=== PATIENT | male | born 1965 | race Caucasian/White ===

== ENCOUNTER 2018-12-26 09:05 | Emergency (ER) | payer SELFPAY ==
[2018-12-26] MEDS ORDERED: Acetaminophen 500 MG TAB ONE (09:42)
[2018-12-26] MEDS ORDERED: Ibuprofen 800 MG TAB ONE (09:42)
--- NOTE | 2018-12-26 09:53 | RAD ---
2 views chest. HISTORY: Cough for 5 days. PA and lateral views of the chest is obtained. The lungs are well aerated. No evidence of active intr athoracic disease seen. No evidence of effusions, pneumonia or pneumothorax seen IMPRESSION: Unremarkable 2 views chest.
[2018-12-26] MEDS ORDERED: Azithromycin 250 MG TAB ONE (10:14)
== END 2018-12-26 10:18 | disposition home or self-care (01) ==
LOC: ERS 09:05
DX: J20.9 Acute bronchitis, unspecified (principal)
CPT/HCPCS: 71046

== ENCOUNTER 2024-03-17 17:24 | Inpatient (IN) | payer SELFPAY ==
[~2024-03-17 17:24] MED LIST: Iopamidol-370 76% 500 ML MDV (1 ML CHARGE) ONE
[2024-03-17] MEDS ORDERED: fentaNYL 50 mcg/mL 1 mL Vial ONE (17:48)
[2024-03-17] MEDS ORDERED: Ondansetron PF 4 MG/2 ML Vial ONE ×3 (17:48→20:02)
[2024-03-17 18:02] LABS: #Basophils 0.04 10x3/uL (0.0-0.2); %Basophils 0.4 % (0.0-1.0); %Eosinophils 0.8 % (0.0-10.0); %Lymphocytes 31.3 % (21.0-51.0); %Monocytes 6.3 % (0.0-10.0); %Neutrophils 60.7 % (42.0-75.0); Hematocrit 45.1 % (42.0-52.0); Hemoglobin 16.3 g/dL (14.0-18.0); Mean Corpuscular HGB CONC 36.1 g/dL (32.0-36.0); Mean Corpuscular Hemoglobin 30.8 pg (27.0-31.0); Mean Corpuscular Volume 85.1 fL (78.0-98.0); Mean Platelet Volume 10.1 fL (7.4-10.4); Platelet Count 256 10x3/uL (130-400); RBC Distribution Width 12.5 % (11.5-14.5)
[2024-03-17 18:22] LABS: ALT (SGPT) 11 U/L (8-55); AST (SGOT) 19 U/L (5-34); Alkaline Phosphatase 108 U/L (40-110); Anion Gap 19 mmol/L (10-20); BUN (Urea Nitrogen) 13 mg/dL (8.4-25.7); Bilirubin, Total 1.2 mg/dL (0.2-1.2); Calc. Creatinine Clearance 0 mL/min (70-130); Calcium 9.6 mg/dL (7.8-10.44); Carbon Dioxide 18 mmol/L (22-29); Chloride 101 mmol/L (98-107); Estimated GFR 58; Globulin 3.2 g/dL (2.4-3.5); Glucose 173 mg/dL (70-105); Lipase 41 U/L (8-78); Magnesium 1.6 mg/dL (1.6-2.6); Potassium 2.6 mmol/L (3.5-5.1); Protein, Total 7.2 g/dL (6.0-8.3); Sodium 135 mmol/L (136-145)
[2024-03-17] MEDS ORDERED: Morphine 4 MG/ML VIAL ONE (18:38)
[2024-03-17] MEDS ORDERED: NS 0.9% w/ 20 MEQ KCL 1,000 ML ONE (19:48)
[2024-03-17] MEDS ORDERED: PROPOFOL 20 ML ONE (20:01)
[2024-03-17] MEDS ORDERED: fentaNYL PF 100 MCG/2 ML SYRINGE ONE (20:01)
[2024-03-17] MEDS ORDERED: Midazolam HCl 2 mg/2 ml Vial ONE (20:01)
[2024-03-17] MEDS ORDERED: Dexamethasone 20 MG/5 ML VIAL ONE (20:02)
[2024-03-17] MEDS ORDERED: SUCCINYLCHOLINE/SOD CL,ISO/PF 200 MG/10 ML SYRINGE FS ONE (20:02)
[2024-03-17] MEDS ORDERED: Lidocaine 1% PF 5 ML VIAL ONE (20:02)
[2024-03-17] MEDS ORDERED: Rocuronium Bromide 10 MG/ML (10ML VIAL) ONE (20:02)
[2024-03-17] MEDS ORDERED: Lidocaine 2% 6 ML (Jelly) SYR ONE (20:04)
[2024-03-17] MEDS ORDERED: CEFAZOLIN 2 GM VIAL ONE (20:12)
[2024-03-17] MEDS ORDERED: Sodium Chloride 0.9% 0 ML ONE (20:12)
[2024-03-17] MEDS ORDERED: Sterile Water 20 ML ONE (20:14)
[2024-03-17] MEDS ORDERED: CEFAZOLIN 1 GM VIAL ONE (20:15)
[2024-03-17] MEDS ORDERED: EPINEPHrine 1 MG/ML VIAL ONE (20:41)
[2024-03-17] MEDS ORDERED: Bupivacaine PF 0.5% 30 ML VIAL ONE (20:41)
[2024-03-17] MEDS ORDERED: PHENYLEPHRINE-NS 100 MCG/ML 10 ML SYRINGE ONE (21:59)
[2024-03-17] MEDS ORDERED: SUGAMMADEX SODIUM 200 MG/2 ML VIAL ONE (21:59)
[2024-03-17] MEDS ORDERED: Ketorolac Tromethamine 30 MG/ML VIAL IVP PRN (22:12)
[2024-03-17] MEDS ORDERED: HYDROmorphone 2 MG/ML VIAL SLOW IVP PRN (22:12)
[2024-03-17] MEDS ORDERED: Meperidine HCl/PF 25 MG/ML VIAL SLOW IVP PRN (22:12)
[2024-03-17] MEDS ORDERED: Ondansetron HCl/PF 4 MG/2 ML Vial IVP PRN (22:12)
[2024-03-17] MEDS ORDERED: Promethazine HCl 25 MG/ML VIAL IM PRN (22:12)
[2024-03-17] MEDS ORDERED: Calcium Carbonate 500 MG ChewTAB PO PRN (22:27)
[2024-03-17] MEDS ORDERED: Dextrose 50% Abboject 50 ML SYRINGE SLOW IVP PRN (22:27)
[2024-03-17] MEDS ORDERED: Dextrose 5% in Water 1,000 ML IV PRN (22:27)
[2024-03-17] MEDS ORDERED: Mag-Al 1200 mg/1200 mg/30 ML UDCUP PO PRN (22:27)
[2024-03-17] MEDS ORDERED: Glucagon 1 MG/ML KIT IM PRN (22:27)
[2024-03-17] MEDS ORDERED: Ondansetron PF 4 MG/2 ML Vial IVP PRN (22:27)
[2024-03-17] MEDS ORDERED: Ipratropium/Albuterol 3 ML NEB NEB PRN (22:27)
[2024-03-17] MEDS ORDERED: Morphine 2 MG/ML VIAL SLOW IVP PRN (22:47)
[2024-03-17] MEDS ORDERED: HYDROcodone/Acetaminophen 10/325 mg Tablet PO PRN (22:47)
[2024-03-17] MEDS ORDERED: Methocarbamol 500 MG TAB PO PRN (22:51)
[2024-03-17] MEDS ORDERED: Ketorolac Tromethamine 30 MG (1 mL) VIAL ONE (22:53)
[2024-03-17 23:33] LABS: Lactic Acid 2.4 mmol/L (0.5-2.2)
[2024-03-18 01:09] VITALS: BMI 24.6
[2024-03-18] MEDS: Lactated Ringer's 1,000 ML IV SCH (01:17)
[2024-03-18] MEDS: Ketorolac Tromethamine 30 MG (1 mL) VIAL IVP SCH (06:33)
[2024-03-18] MEDS ORDERED: Electrolyte Replacement Protocol FS PRN (06:45)
[2024-03-18] MEDS: Magnesium 2 GM/50 ML(in water) 2 GM in Premix 1 BAG IVPB SCH (06:53)
[2024-03-18] MEDS: Enoxaparin 30 MG (0.3 mL) SYRINGE SC SCH (08:28)
[2024-03-18] MEDS: Docusate 100 MG CAP PO SCH (08:28)
[2024-03-18] MEDS: Famotidine 20 MG TAB PO SCH (08:28)
[2024-03-18] MEDS: Potassium Chloride 20 MEQ in Premix 1 BAG IVPB SCH (08:29)
[2024-03-18] MEDS ORDERED: HYDROcodone/Acetaminophen 5/325 mg Tablet PO PRN (10:38)
[2024-03-18] MEDS: Acetaminophen 325 MG TAB PO PRN (13:51)
[2024-03-18 17:24] VITALS: BP 121/70; TEMP 98.7
[2024-03-19] MEDS ORDERED: Enoxaparin 40 MG (0.4 mL) SYRINGE SC SCH (09:00)
== END 2024-03-18 18:44 | disposition home or self-care (01) | DRG 352 ==
LOC: ERS 17:24 → SDC/OP 20:16 → MSONC 22:27 → SURG A 03-18 00:55 → MSONC 03-18 00:56
PROVIDERS: ADMIT Surgery; ATTEND Surgery
PROC: 0YU50JZ Supplement Right Inguinal Region with Synthetic Substitute, Open Approach (ICD-10-PCS; principal; 2024-03-17)
PROC: 0VT90ZZ Resection of Right Testis, Open Approach (ICD-10-PCS; 2024-03-17)
DX: K46.0 Unspecified abdominal hernia with obstruction, without gangrene (principal)
CPT/HCPCS: 36415; 36416; 74177; 80053; 83605; 83690; 83735; 85025; 86850; 86900; 86901; 88305; 93005; C1781; J0171; J0665; J0690; J1100; J1650; J1885; J2250; J2405; J2704; J3010; J3475; J3480; J7120; Q9967